=== PATIENT | female | born 2000 | race African-American/Black ===

== ENCOUNTER 2024-01-29 18:03 | Emergency (ER) | payer SELFPAY ==
[~2024-01-29] VITALS: Ht 162.6 cm; Wt 99.0 kg
[2024-01-29 18:08] VITALS: BP 136/80; RESP 20; TEMP 98.8; O2SAT 100
[2024-01-29 19:15] VITALS: PULSE 70
[2024-01-29] MEDS: ACETAMINOPHEN 325MG TABLET PO ONE (19:15)
[2024-01-29] MEDS: KETOROLAC 60MG/2ML VIAL IM ONE (19:15)
== END 2024-01-29 20:48 | disposition left against medical advice (07) ==
LOC: ER 18:03
DX: R51.9 Headache, unspecified (principal)
CPT/HCPCS: 81025; 96372; 99283; J1885; Z7610